=== PATIENT | female | born 1955 | race American Indian/Alaskan Native ===

== ENCOUNTER 2017-08-13 08:22 | Outpatient (CLI) | payer MEDICARE ==
--- NOTE | 2017-08-13 14:37 | Mammography Report ---
BILATERAL DIGITAL SCREENING MAMMOGRAM with CAD: 08/13/17 08:22:00 CLINICAL: Routine screening.Status post bilateral reduction mammoplasty in 2011 COMPARISON:08/12/16 FINDINGS: The breasts are almost entirely fatty.Stable bilateral benign scar with fat necrosis and benign calcifications. No mass, architectural distortion or suspicious calcifications. IMPRESSION: No mammographic evidence of malignancy. BI-RADS CATEGORY: 2 -- Benign RECOMMENDATION: Routine mammographic screening in one year. COMMENT: Patient follow-up letters are generated by our [employer] application.
== END 2017-08-13 08:23 | disposition home or self-care (01) ==
LOC: SPVWC 08:22
PROVIDERS: ATTEND Family Medicine
DX: Z12.31 Encounter for screening mammogram for malignant neoplasm of breast (principal)
CPT/HCPCS: 77067; G0202

== ENCOUNTER 2019-03-29 09:16 | Outpatient (CLI) | payer MEDICARE ==
--- NOTE | 2019-03-29 11:34 | Mammography Report ---
DEXA BONE DENSITY SCAN INDICATION: POSTMENOPAUSAL. COMPARISON: None available. LUMBAR SPINE (L1,L3 and L4): Bone mineral density (BMD) is 1.265 g/cm2. T-score is 1.0 (standard deviations of Young Adult mean). Z-score is 3.0 (standard deviations of Age Matched mean). LEFT HIP: Total bone mineral density (BMD) is 0.973 g/cm2. T-score is -0.4 (standard deviations of Young Adult mean). Z-score is +0.6 (standard deviations of Age Matched mean). LEFT FEMORAL NECK: Bone mineral density (BMD) is 0.742 g/cm2. T-score is -1.5 (standard deviations of Young Adult mean). Z-score is -0.2 (standard deviations of Age Matched mean). IMPRESSION: 1. WHO classification: Normal with average fracture risk based on lumbar spine measurements. 2. WHO classification: Osteopenia with increased fracture risk based on left femoral neck measurement s. Signer Name: Jason Juarez MD Signed: 03/29/2019 11:29 AM Workstation Name: [id number]
== END 2019-03-29 09:17 | disposition home or self-care (01) ==
LOC: SPVWC 09:16
PROVIDERS: ATTEND Family Medicine
DX: M85.88 Other specified disorders of bone density and structure, other site (principal); Z78.0 Asymptomatic menopausal state
CPT/HCPCS: 77080

== ENCOUNTER 2019-08-23 08:17 | Outpatient (CLI) | payer MEDICARE ==
--- NOTE | 2019-08-23 13:50 | Mammography Report ---
DIGITAL SCREENING MAMMOGRAM WITH CAD, 08/23/2019 INDICATION: Routine screening mammography. History of bilateral reduction mammoplasty. TECHNIQUE: Digital bilateral 2D mammography was obtained in the craniocaudal and mediolateral obliq ue projections. This examination was interpreted with the benefit of Computer-Aided Detection analysi s. COMPARISON: 08/17/2018 FINDINGS: Breast Density: The breasts are almost entirely fatty. There is no evidence of dominant mass, suspicious calcifications or architectural distortion in eithe r breast. Bilateral benign calcifications. IMPRESSION: No mammographic evidence of malignancy. Follow up recommendation: Routine yearly BI-RADS Category 2: Benign. A "normal" or negative report should not discourage follow up or biopsy of a clinically significant f inding. A written summary of these findings will be mailed to the patient. The patient will be entered into a mammography reporting system which will generate a reminder letter for the patient's next appointmen t at the appropriate interval. The [employer] recommends yearly mammograms starting at age 40 and continuing as l herminia as a woman is in good health. Breast MRI is recommended for women with an approximate 20-25% or greater lifetime risk of breast cancer, including women with a strong family history of breast or ova vaishali cancer or who have been treated for Hodgkin's disease. Signer Name: Jason Juarez MD Signed: 08/23/2019 1:45 PM Workstation Name: [id number]
== END 2019-08-23 08:18 | disposition home or self-care (01) ==
LOC: SPVWC 08:17
PROVIDERS: ATTEND Family Medicine
DX: Z12.31 Encounter for screening mammogram for malignant neoplasm of breast (principal)
CPT/HCPCS: 77067

== ENCOUNTER 2020-08-28 09:23 | Outpatient (CLI) | payer MEDICARE ==
--- NOTE | 2020-08-28 14:45 | Mammography Report ---
DIGITAL SCREENING MAMMOGRAM WITH CAD, 08/28/2020 CLINICAL INFORMATION / INDICATION: Routine screening mammography. TECHNIQUE: Digital bilateral 2D mammography was obtained in the craniocaudal and mediolateral obliqu e projections. This examination was interpreted with the benefit of Computer-Aided Detection analysis . COMPARISON: 08/23/2019, 08/17/2018 FINDINGS: Breast Density: The breasts are almost entirely fatty. No dominant mass, suspicious calcifications, or architectural distortion in either breast. Calcifications in the right subareolar breast are unchanged and consistent with fat necrosis. Bilater al reduction mammoplasty. Overall, no significant interval change. IMPRESSION: No mammographic evidence of malignancy. Follow up recommendation: Routine yearly BI-RADS Category 2: Benign. A "normal" or negative report should not discourage follow up or biopsy of a clinically significant f inding. A written summary of these findings will be mailed to the patient. The patient will be entered into a mammography reporting system which will generate a reminder letter for the patient's next appointmen t at the appropriate interval. The [employer] recommends yearly mammograms starting at age 40 and continuing as l herminia as a woman is in good health. Breast MRI is recommended for women with an approximate 20-25% or greater lifetime risk of breast cancer, including women with a strong family history of breast or ova vaishali cancer or who have been treated for Hodgkin's disease. Signer Name: Brandie Jacinto MD Signed: 08/28/2020 2:41 PM Workstation Name: [id number]
== END 2020-08-28 09:24 | disposition home or self-care (01) ==
LOC: SPVWC 09:23
PROVIDERS: ATTEND Family Medicine
DX: Z12.31 Encounter for screening mammogram for malignant neoplasm of breast (principal); R92.1 Mammographic calcification found on diagnostic imaging of breast
CPT/HCPCS: 77067